=== PATIENT | female | born 1950 | race African-American/Black ===

== ENCOUNTER 2018-06-01 11:19 | Emergency (ER) | payer MEDICAID, MEDICARE ==
[~2018-06-01] VITALS: Ht 170.2 cm; Wt 77.0 kg
[~2018-06-01 11:19] MED LIST: AMOX-73; BUPR100T13; PROM25TA13; TOPA25
[2018-06-01] MEDS ORDERED: ACETAMINOPHEN 325MG TABLET PO STA (11:30)
[2018-06-01 11:50] LABS: BASOPHILS % 1.1 % (0.0-2.0); EOSINOPHILS % 2.6 % (0.0-5.0); HEMATOCRIT. 38.3 % (36.0-48.0); HEMOGLOBIN. 12.7 g/dL (12.0-16.0); LYMPHOCYTES % 30.9 % (20.0-50.0); MEAN CORPUSCULAR HEMOGLOBIN 27.3 pg (28.0-32.0); MEAN CORPUSCULAR VOLUME 82.4 fL (81.0-99.0); MEAN PLATELET VOLUME 8.7 fl (7.4-10.4); MONOCYTES % 8.9 % (2.0-8.0); NEUTROPHILS % 56.5 % (40.0-76.0); PLATELET 244 x1000/uL (130-400); RED BLOOD CELL COUNT 4.65 mill/uL (4.2-5.4); RED CELL DISTRIBUTION WIDTH 17.3 % (11.6-14.6)
[2018-06-01 11:57] LABS: CHLORIDE 106 mEq/L (98-107)
[2018-06-01 11:59] LABS: PROTHROMBIN TIME 10.4 sec (9.4-11.6)
[2018-06-01 13:19] LABS: CLARITY URINE TURBID (CLEAR); COLOR URINE YELLOW (YELLOW); KETONES URINE NEGATIVE (NEGATIVE); LEUKOCYTE ESTERASE URINE 3+ (NEGATIVE); NITRITE URINE POSITIVE (NEGATIVE); OCCULT BLOOD URINE 3+ (NEGATIVE); PH URINE 5.5 (4.5-8.0); PROTEIN URINE 3+ (NEGATIVE); SPECIFIC GRAVITY URINE 1.014 (1.005-1.030); UROBILINOGEN URINE 0.2 E.U./dL (0.2-1.0)
[2018-06-01 15:42] VITALS: BP 156/71
== END 2018-06-01 15:51 | disposition home or self-care (01) ==
LOC: ER 11:19
DX: N39.0 Urinary tract infection, site not specified (principal); I10 Essential (primary) hypertension
CPT/HCPCS: 36415; 80053; 81003; 83690; 85025; 85610; 87086; 99284